=== PATIENT | female | born 1950 | race Caucasian/White ===

== ENCOUNTER 2017-05-19 09:53 | Outpatient (CLI) | payer MEDICARE, BC ==
--- NOTE | 2017-05-19 10:53 | MMO ---
BILATERAL MAMMOGRAM SCREENING WITH CAD: Comparison: 05-13-16, 05-11-15, 03-20-14 FINDINGS: This study is interpreted with the assistance of computer aided detection. There are scattered fibroglandular densities. No significant masses or calcifications are seen. IMPRESSION: BIRADS category 1 - negative. Continue annual mammographic screening. POS: [facility]
== END 2017-05-19 09:54 | disposition home or self-care (01) ==
LOC: SCSMAMMO 09:53
PROVIDERS: ATTEND Family Medicine
DX: Z12.31 Encounter for screening mammogram for malignant neoplasm of breast (principal)
CPT/HCPCS: 77067; G0202

== ENCOUNTER 2018-05-24 08:37 | Outpatient (CLI) | payer MEDICARE, BC ==
--- NOTE | 2018-05-24 11:45 | MMO ---
BILATERAL SCREENING MAMMOGRAM: DATE: 05/24/18 HISTORY: 67-year-old female for screening mammography. COMPARISON: 05/19/17, 05/13/16, 05/11/15. FINDINGS: Bilateral MLO and CC views of the breasts show scattered fibroglandular breast tissue. There is no ev idence of suspicious mass, suspicious cluster of microcalcifications, or area of architectural distor tion. Interpretation of this mammogram was performed with the assistance of computer-aided detection. IMPRESSION: BIRADS 1: Negative Annual screening mammography is recommended. POS: [facility]UI
== END 2018-05-24 08:38 | disposition home or self-care (01) ==
LOC: SCSMAMMO 08:37
PROVIDERS: ATTEND Obstetrics & Gynecology
DX: Z12.31 Encounter for screening mammogram for malignant neoplasm of breast (principal)
CPT/HCPCS: 77067